=== PATIENT | male | born 1970 | race African-American/Black ===

== ENCOUNTER 2018-11-11 13:41 | Inpatient (IN) | payer OTHER ==
[2018-11-11 14:13] VITALS: BMI 41.3
--- NOTE | 2018-11-11 19:46 | HP ---
"CIWA Score Nausea/Vomitin-Mild Nausea/No Vomiting Muscle Tremors: 1-None Visible, but Girard Anxiety: 4-Mod. Anxious/Guarded Agitation: 4-Moderately Restless Paroxysmal Sweats: 1-Minimal Palms Moist Orientation: 0-Oriented Tacttile Disturbances: 0-None Auditory Disturbances: 0-None Visual Disturbances: 0-None Headache: 3-Moderate CIWA-Ar Total Score: 14 - Admission Criteria [facility]ASAS Guidelines: Admission for Medically Managed Detox: Requires at least one of the followin. CIWA greater than 12 2. Seizures within the past 24 hours 3. Delirium tremens within the past 24 hours 4. Hallucinations within the past 24 hours 5. Acute intervention needed for co occurring medical disorder 6. Acute intervention needed for co occurring psychiatric disorder 7. Severe withdrawal that cannot be handled at a lower level of care (continued vomiting, continued diarrhea, abnormal vital signs) requiring intravenous medication and/or fluids 8. Patient presents the following: CIWA greater than 12 Admission Criteria Met: Admission criteria met Admission ROS S - [facility] Chief Complaint: I'm having alcohol withdrawal and I need help for crack. Allergies/Adverse Reactions: Allergies Allergy/AdvReac Type Severity Reaction Status Date / Time No Known Allergies Allergy Verified 11/11/18 18:03 History of Present Illness: Alcohol use began at age 18. Cocaine/Crack use began at age 21. Nicotine use began at age 10. Denies seizures or overdose. States last blackout 1 year ago. Longest sobriety 2 years. C/0 stiffness (R) shoulder. Denies pain. Denies significant PMH/PSH Search Terms: [place], 1970 Search Date: 11/11/2018 07:36:31 PM The Drug Utilization Report below displays all of the controlled substance prescriptions, if any, that your patient has filled in the last twelve months. The information displayed on this report is compiled from pharmacy submissions to the Department, and accurately reflects the information as submitted by the pharmacies. This report was requested by: Nannette Wallis | Reference #: [id number] There are no results for the search terms that you entered. Exam Limitations: No Limitations - Ebola screening Have you traveled outside of the country in the last 21 days: No Have you had contact with anyone from an Ebola affected area: No Have you been sick,other than usual withdrawal symptoms: No - Review of Systems Constitutional: Changes in sleep (Difficulty falling and staying asleep[.) EENT: reports: Blurred Vision, Dental Problems (No teeth. States wears dentures) Respiratory: reports: No Symptoms reported Cardiac: reports: No Symptoms Reported GI: reports: Nausea : reports: No Symptoms Reported Musculoskeletal: reports: Joint Pain ((R) shoulder pain x years. Has been seen at [facility] and recent x-ray is negative.), Other (Knot (L) thumb x 2 months.) Integumentary: reports: No Symptoms Reported Neuro: reports: Headache, Tremors (States shakes resolved) Endocrine: reports: No Symptoms Reported Hematology: reports: No Symptoms Reported Psychiatric: reports: Judgement Intact, Orientated x3, Agitated, Anxious, Depressed (Denies thoughts of harming self or others) Patient History - Patient Medical History Hx Asthma: No Hx Cardiac Disorders: No Hx Hypertension: No Hx Seizures: No Hx Diabetes: No Hx Gastrointestinal Disorders: No Hx Sexually Transmitted Disorders: No Hx Depression: Yes - Patient Surgical History Past Surgical History: No - PPD History Previous Implant?: Yes Documented Results: Negative w/o proof Implanted On Prior R Admission?: No PPD to be Administered?: Yes - Smoking Cessation Smoking history: Current every day smoker Have you smoked in the past 12 months: Yes Aproximately how many cigarettes per day: 5 Hx Chewing Tobacco Use: No Initiated information on smoking cessation: Yes 'Breaking Loose' booklet given: 11/11/18 - Substance & Tx. History Hx Alcohol Use: Yes Hx Substance Use: Yes Substance Use Type: Alcohol, Cocaine (Crack/cocaine) - Substances Abused Alcohol Route: Oral Frequency: Daily Amount used: 4 PINTS Age of first use: 18 Date of Last Use: 11/11/18 Cocaine Route: Smoking Frequency: 1-3 times last 30 days Amount used: $400 Age of first use: 21 Date of Last Use: 11/10/18 Admission Physical Exam BHS - Vital Signs Vital Signs: Vital Signs - 24 hr 11/11/18 14:11 Temperature 98.2 F Pulse Rate 73 Respiratory 18 Rate Blood Pressure 143/95 - Physical General Appearance: Yes: Mild Distress, Tremorous, Irritable, Sweating, Anxious HEENTM: Yes: EOMI, Hearing grossly Normal, Normal Voice, SILKE, Pharynx Normal Respiratory: Yes: Chest Non-Tender, Lungs Clear, Normal Breath Sounds, No Respiratory Distress Neck: Yes: No masses,lesions,Nodules, Supple Breast: Yes: Breast Exam Deferred Cardiology: Yes: Regular Rhythm, Regular Rate, S1, S2 Abdominal: Yes: Non Tender (Tenderness mid epigastric area. No guarding. No rebound.), Soft, Increased Bowel Sounds, Protuberent (Increased abdominal adiposity.) Genitourinary: Yes: Within Normal Limits Back: Yes: Normal Inspection Musculoskeletal: Yes: Gait Steady, Joint Stiffness ((R) arm stiffness) Extremities: Yes: Normal Capillary Refill, Non-Tender, Tremors (Tremors at rest which increase w/ arm elevation) Neurological: Yes: radio officer II-XII NML intact, Fully Oriented, Alert, Motor Strength 5/5 Integumentary: Yes: Normal Color, Dry, Warm Lymphatic: Yes: Within Normal Limits - Diagnostic (1) Alcohol dependence with uncomplicated withdrawal Current Visit: Yes Status: Acute (2) Cocaine dependence, uncomplicated Current Visit: Yes Status: Chronic (3) Obesity Current Visit: Yes Status: Chronic Qualifiers: Obesity type: unspecified obesity type Obesity classification: adult class 3 (BMI >= 40) Serious obesity comorbidity presence: unspecified whether serious comorbidity present Body mass index: BMI 40.0-44.9 Qualified Code(s) : E66.01 - Morbid (severe) obesity due to excess calories; Z68.41 - Body mass index (BMI) 40.0-44.9, adult (4) Nicotine dependence, uncomplicated Current Visit: Yes Status: Chronic Qualifiers: Nicotine product type: cigarettes Qualified Code(s): F17.210 - Nicotine dependence, cigarettes, uncomplicated Cleared for Admission [facility] - Detox or Rehab [facility] Level of Care: Medically Managed Detox Regimen/Protocol: Librium [facility] Breath Alcohol Content Breath Alcohol Content: 0 Urine Drug Screen - Results Drug Screen Negative: No Urine Drug Screen Results: KEVIN-Cocaine"
[2018-11-11] MEDS ORDERED: MAG HYDROX/AL HYDROX/SIMETH 30 ML UNIT-DOSE CUP PO PRN (22:05)
[2018-11-11] MEDS ORDERED: MAGNESIUM CITRATE 300 ML BOTTLE PO PRN (22:05)
[2018-11-11] MEDS ORDERED: MAGNESIUM HYDROX 2400MG/30ML ORAL SUSPENSION 30 ML CUP PO PRN (22:05)
[2018-11-11] MEDS ORDERED: NICOTINE POLACRILEX 2 MG GUM BC PRN (22:05)
[2018-11-11] MEDS ORDERED: MENTHOL/PHENOL 1 EACH UD MM PRN (22:05)
[2018-11-11] MEDS ORDERED: IBUPROFEN 400 MG TABLET (FP) PO PRN (22:05)
[2018-11-11] MEDS ORDERED: chlordiazePOXIDE HCL 25 MG CAPSULE PO PRN (22:05)
[2018-11-11] MEDS ORDERED: P-EPHED 60MG/TRIPROLIDI 2.5MG TABLET PO PRN (22:05)
[2018-11-11] MEDS ORDERED: LOPERAMIDE HCL 2 MG CAPSULE PO PRN (22:05)
[2018-11-11] MEDS ORDERED: ACETAMINOPHEN 325 MG TABLET (FP) PO PRN (22:05)
[2018-11-11] MEDS ORDERED: chlordiazePOXIDE HCL 25 MG CAPSULE PO ONE (22:05)
[2018-11-11] MEDS: chlordiazePOXIDE HCL 25 MG CAPSULE PO SCH (22:57)
[2018-11-12] MEDS: chlordiazePOXIDE HCL 25 MG CAPSULE PO SCH ×4 (06:04→22:29)
--- NOTE | 2018-11-12 08:37 | EKG ---
Test Reason : Blood Pressure : / mmHG Vent. Rate : 048 BPM Atrial Rate : 048 BPM P-R Int : 148 ms QRS Dur : 076 ms QT Int : 456 ms P-R-T Axes : 063 010 018 degrees QTc Int : 407 ms SINUS BRADYCARDIA OTHERWISE NORMAL ECG NO PREVIOUS ECGS AVAILABLE Confirmed by JOHN CAMPBELL, NIGHAT ([id number]) on 11/12/2018 8:37:06 AM Referred By: Confirmed By:NIGHAT LOPEZ MD
[2018-11-12] MEDS: PRENATAL VITAMINS W/ FOLIC ACID TABLET (FP) PO SCH (10:11)
[2018-11-12] MEDS: NICOTINE 7 MG/24 HOURS TOPICAL PATCH TD SCH (10:19)
[2018-11-12 10:55] LABS: ALBUMIN 3.3 g/dl (3.4-5.0); ALK PHOS 59 U/L (45-117); ANION GAP 8 MMOL/L (8-16); BILIRUBIN,TOTAL 0.3 mg/dL (0.2-1); BLOOD UREA NITROGEN 16 mg/dL (7-18); CALCIUM 8.8 mg/dL (8.5-10.1); CHLORIDE 104 mmol/L (98-107); CO2 27 mmol/L (21-32); CREATININE 1.1 mg/dL (0.55-1.3); GLUCOSE,RANDOM 123 mg/dL (74-106); POTASSIUM 3.7 mmol/L (3.5-5.1); SGOT/AST 36 U/L (15-37); SGPT/ALT 29 U/L (13-61); SODIUM 140 mmol/L (136-145); TOT PROT 5.9 g/dl (6.4-8.2)
[2018-11-12 10:56] LABS: URINE APPEARANCE TURBID; URINE BILIRUBIN NEGATIVE (<2.0 mg/dL); URINE COLOR YELLOW; URINE GLUCOSE (UA) 2+ (NEGATIVE); URINE KETONE NEGATIVE (NEGATIVE); URINE LEUK ESTERASE NEGATIVE (NEGATIVE); URINE NITRITE NEGATIVE (NEGATIVE); URINE PROTEIN NEGATIVE (NEGATIVE)
[2018-11-12 11:06] LABS: HEMATOCRIT 42.8 % (35.4-49); HEMOGLOBIN 13.8 GM/dL (11.7-16.9); MCH 28.6 pg (25.7-33.7); MCHC 32.2 g/dl (32.0-35.9); MEAN CELL VOLUME 88.9 fl (80-96); MEAN PLT VOLUME 8.5 fl (7.5-11.1); PLATELET COUNT 241 K/MM3 (134-434); RBC 4.81 M/mm3 (4.00-5.60); RDW 13.8 % (11.9-15.9)
--- NOTE | 2018-11-12 15:14 | PN ---
S CIWA - CIWA Score Nausea/Vomitin-No Nausea/No Vomiting Muscle Tremors: 2 Anxiety: 3 Agitation: 2 Paroxysmal Sweats: 2 Orientation: 0-Oriented Tacttile Disturbances: 2-Mild Itch/Numbness/Burn Auditory Disturbances: 0-None Visual Disturbances: 0-None Headache: 0-None Present CIWA-Ar Total Score: 11 BHS Progress Note (SOAP) Subjective: Sweating, Tremors, Anxious. Objective: PATIENT A & O X 3, OBSERVED AMBULATING ON UNIT. IN NO ACUTE DISTRESS. 11/12/18 15:15 Vital Signs Temperature 99.3 F 11/12/18 13:41 Pulse Rate 90 11/12/18 13:41 Respiratory Rate 18 11/12/18 13:41 Blood Pressure 111/70 11/12/18 13:41 O2 Sat by Pulse Oximetry (%) Laboratory Tests 11/12/18 11/12/18 11/12/18 07:45 07:45 07:45 WBC 8.0 RBC 4.81 Hgb 13.8 Hct 42.8 MCV 88.9 MCH 28.6 MCHC 32.2 RDW 13.8 Plt Count 241 MPV 8.5 Sodium 140 Potassium 3.7 Chloride 104 Carbon Dioxide 27 Anion Gap 8 BUN 16 Creatinine 1.1 Creat Clearance w eGFR > 60 Random Glucose 123 H Calcium 8.8 Total Bilirubin 0.3 AST 36 ALT 29 Alkaline Phosphatase 59 Total Protein 5.9 L Albumin 3.3 L Urine Color Urine Appearance Urine pH Ur Specific [place] Urine Protein Urine Glucose (UA) Urine Ketones Urine Blood Urine Nitrite Urine Bilirubin Urine Urobilinogen Ur Leukocyte Esterase HIV 1&2 Antibody Screen Negative HIV P24 Antigen Negative 11/12/18 07:45 WBC RBC Hgb Hct MCV MCH MCHC RDW Plt Count MPV Sodium Potassium Chloride Carbon Dioxide Anion Gap BUN Creatinine Creat Clearance w eGFR Random Glucose Calcium Total Bilirubin AST ALT Alkaline Phosphatase Total Protein Albumin Urine Color Yellow Urine Appearance Turbid Urine pH 5.0 Ur Specific [place] 1.032 Urine Protein Negative Urine Glucose (UA) 2+ H Urine Ketones Negative Urine Blood Negative Urine Nitrite Negative Urine Bilirubin Negative Urine Urobilinogen 2.0 Ur Leukocyte Esterase Negative HIV 1&2 Antibody Screen HIV P24 Antigen LABS NOTED. Assessment: 11/12/18 15:16 WITHDRAWAL SYMPTOMS. Plan: CONTINUE DETOX. INCREASE DAILY PO FLUID INTAKE.
[2018-11-12] MEDS: THIAMINE HCL 100 MG TABLET (FP) PO SCH (22:29)
[2018-11-12] MEDS: MELATONIN 5 MG TABLETS PO PRN (22:30)
[2018-11-13] MEDS: chlordiazePOXIDE HCL 25 MG CAPSULE PO SCH ×3 (05:30→17:20)
[2018-11-13] MEDS: NICOTINE 7 MG/24 HOURS TOPICAL PATCH TD SCH (10:06)
[2018-11-13] MEDS: PRENATAL VITAMINS W/ FOLIC ACID TABLET (FP) PO SCH (10:06)
--- NOTE | 2018-11-13 17:53 | PN ---
S CIWA - CIWA Score Nausea/Vomitin Muscle Tremors: 3 Anxiety: 3 Agitation: 3 Paroxysmal Sweats: 3 Orientation: 0-Oriented Tacttile Disturbances: 1-Very Mild Itch/Numbness Auditory Disturbances: 0-None Visual Disturbances: 0-None Headache: 0-None Present CIWA-Ar Total Score: 15 [facility] (SOAP[facility] Subjective: Sweating, chills, tremor, interrupted sleep Objective: 11/13/18 17:50 Last Vital Signs Temp Pulse Resp BP Pulse Ox 97.9 F 66 16 109/77 11/13/18 17:44 11/13/18 17:44 11/13/18 17:44 11/13/18 17:44 Laboratory Tests 11/12/18 11/12/18 11/12/18 07:45 07:45 07:45 WBC 8.0 RBC 4.81 Hgb 13.8 Hct 42.8 MCV 88.9 MCH 28.6 MCHC 32.2 RDW 13.8 Plt Count 241 MPV 8.5 Sodium 140 Potassium 3.7 Chloride 104 Carbon Dioxide 27 Anion Gap 8 BUN 16 Creatinine 1.1 Creat Clearance w eGFR > 60 Random Glucose 123 H Calcium 8.8 Total Bilirubin 0.3 AST 36 ALT 29 Alkaline Phosphatase 59 Total Protein 5.9 L Albumin 3.3 L Urine Color Urine Appearance Urine pH Ur Specific [place] Urine Protein Urine Glucose (UA) Urine Ketones Urine Blood Urine Nitrite Urine Bilirubin Urine Urobilinogen Ur Leukocyte Esterase RPR Titer HIV 1&2 Antibody Screen Negative HIV P24 Antigen Negative 11/12/18 11/12/18 07:45 07:45 WBC RBC Hgb Hct MCV MCH MCHC RDW Plt Count MPV Sodium Potassium Chloride Carbon Dioxide Anion Gap BUN Creatinine Creat Clearance w eGFR Random Glucose Calcium Total Bilirubin AST ALT Alkaline Phosphatase Total Protein Albumin Urine Color Yellow Urine Appearance Turbid Urine pH 5.0 Ur Specific [place] 1.032 Urine Protein Negative Urine Glucose (UA) 2+ H Urine Ketones Negative Urine Blood Negative Urine Nitrite Negative Urine Bilirubin Negative Urine Urobilinogen 2.0 Ur Leukocyte Esterase Negative RPR Titer Nonreactive HIV 1&2 Antibody Screen HIV P24 Antigen Labs reviewed: serum glucose 123, UA shows 2+ glucose Assessment: 11/13/18 17:51 Withdrawal symptoms Noted with hyperglycemia and glycosuria Plan: Continue detox Hyperglycemia: repeat fasting glucose Glycosuria: encouraged PO water intake, repeat UA
[2018-11-13] MEDS: chlordiazePOXIDE 5 MG CAPSULE PO SCH (22:04)
[2018-11-13] MEDS: THIAMINE HCL 100 MG TABLET (FP) PO SCH (22:04)
[2018-11-13] MEDS: MELATONIN 5 MG TABLETS PO PRN (22:05)
[2018-11-14] MEDS: chlordiazePOXIDE 5 MG CAPSULE PO SCH ×3 (06:20→18:28)
[2018-11-14] MEDS: NICOTINE 7 MG/24 HOURS TOPICAL PATCH TD SCH (10:29)
[2018-11-14] MEDS: PRENATAL VITAMINS W/ FOLIC ACID TABLET (FP) PO SCH (10:30)
--- NOTE | 2018-11-14 10:38 | PN ---
[facility] Progress Note (SOAP) Subjective: feeling better mild gi distress less tremor discuss aftercare with staff Objective: 11/14/18 10:38 Vital Signs Temperature 97.1 F L 11/14/18 09:33 Pulse Rate 67 11/14/18 09:33 Respiratory Rate 18 11/14/18 09:33 Blood Pressure 121/79 11/14/18 09:33 O2 Sat by Pulse Oximetry (%) Laboratory Last Values WBC 8.0 K/mm3 (4.0-10.0) 11/12/18 07:45 RBC 4.81 M/mm3 (4.00-5.60) 11/12/18 07:45 Hgb 13.8 GM/dL (11.7-16.9) 11/12/18 07:45 Hct 42.8 % (35.4-49) 11/12/18 07:45 MCV 88.9 fl (80-96) 11/12/18 07:45 MCH 28.6 pg (25.7-33.7) 11/12/18 07:45 MCHC 32.2 g/dl (32.0-35.9) 11/12/18 07:45 RDW 13.8 % (11.9-15.9) 11/12/18 07:45 Plt Count 241 K/MM3 (134-434) 11/12/18 07:45 MPV 8.5 fl (7.5-11.1) 11/12/18 07:45 Sodium 140 mmol/L (136-145) 11/12/18 07:45 Potassium 3.7 mmol/L (3.5-5.1) 11/12/18 07:45 Chloride 104 mmol/L (98-107) 11/12/18 07:45 Carbon Dioxide 27 mmol/L (21-32) 11/12/18 07:45 Anion Gap 8 MMOL/L (8-16) 11/12/18 07:45 BUN 16 mg/dL (7-18) 11/12/18 07:45 Creatinine 1.1 mg/dL (0.55-1.3) 11/12/18 07:45 Creat Clearance w eGFR > 60 (>60) 11/12/18 07:45 Random Glucose 123 mg/dL (74-106) H 11/12/18 07:45 Calcium 8.8 mg/dL (8.5-10.1) 11/12/18 07:45 Total Bilirubin 0.3 mg/dL (0.2-1) 11/12/18 07:45 AST 36 U/L (15-37) 11/12/18 07:45 ALT 29 U/L (13-61) 11/12/18 07:45 Alkaline Phosphatase 59 U/L (45-117) 11/12/18 07:45 Total Protein 5.9 g/dl (6.4-8.2) L 11/12/18 07:45 Albumin 3.3 g/dl (3.4-5.0) L 11/12/18 07:45 Urine Color Yellow 11/12/18 07:45 Urine Appearance Turbid 11/12/18 07:45 Urine pH 5.0 (5.0-8.0) 11/12/18 07:45 Ur Specific [place] 1.032 (1.010-1.035) 11/12/18 07:45 Urine Protein Negative (NEGATIVE) 11/12/18 07:45 Urine Glucose (UA) 2+ (NEGATIVE) H 11/12/18 07:45 Urine Ketones Negative (NEGATIVE) 11/12/18 07:45 Urine Blood Negative (NEGATIVE) 11/12/18 07:45 Urine Nitrite Negative (NEGATIVE) 11/12/18 07:45 Urine Bilirubin Negative (<2.0 mg/dL) 11/12/18 07:45 Urine Urobilinogen 2.0 mg/dL (0.2-1.0) 11/12/18 07:45 Ur Leukocyte Esterase Negative (NEGATIVE) 11/12/18 07:45 RPR Titer Nonreactive (NONREACTIVE) 11/12/18 07:45 HIV 1&2 Antibody Screen Negative 11/12/18 07:45 HIV P24 Antigen Negative 11/12/18 07:45 lab noted Assessment: 11/14/18 10:38 mild withdrawal sx Plan: continue detox
[2018-11-14] MEDS: chlordiazePOXIDE HCL 10 MG CAPSULE PO SCH (22:24)
[2018-11-14] MEDS: THIAMINE HCL 100 MG TABLET (FP) PO SCH (22:24)
[2018-11-15 06:06] VITALS: BP 104/65; PULSE 63; TEMP 97.1
[2018-11-15] MEDS: chlordiazePOXIDE HCL 10 MG CAPSULE PO SCH (06:18)
--- NOTE | 2018-11-15 15:04 | DS ---
[facility] Detox Discharge Summary Admission Date: 11/11/18 Discharge Date: 11/15/18 - History Present History: Alcohol Dependence, Cocaine Dependence Additional Comments: PATIENT LEFT DETOX UNIT PRIOR TO TIME OF ARRIVAL OF RIFFLER TENDER ON UNIT. THUS, DISCHARGE INTERVIEW / ASSESSMENT UNABLE TO BE DONE PRIOR TO DISCHARGE. PER PATIENT'S COUNSELOR (ALONZO NEIL), PATIENT DECLINED ALL AFTERCARE OPTION / SUGGESTIONS AND ELECTED TO GO HOME. Pertinent Past History: Nicotine Dependence, History of Depression. - Physical Exam Results Vital Signs: Vital Signs Temperature 97.1 F L 11/15/18 06:05 Pulse Rate 63 11/15/18 06:05 Respiratory Rate 20 11/15/18 06:05 Blood Pressure 104/65 11/15/18 06:05 O2 Sat by Pulse Oximetry (%) Pertinent Admission Physical Exam Findings: WITHDRAWAL SYMPTOMS. Laboratory Tests 11/12/18 11/12/18 11/12/18 07:45 07:45 07:45 WBC 8.0 RBC 4.81 Hgb 13.8 Hct 42.8 MCV 88.9 MCH 28.6 MCHC 32.2 RDW 13.8 Plt Count 241 MPV 8.5 Sodium 140 Potassium 3.7 Chloride 104 Carbon Dioxide 27 Anion Gap 8 BUN 16 Creatinine 1.1 Creat Clearance w eGFR > 60 Random Glucose 123 H Calcium 8.8 Total Bilirubin 0.3 AST 36 ALT 29 Alkaline Phosphatase 59 Total Protein 5.9 L Albumin 3.3 L Urine Color Urine Appearance Urine pH Ur Specific [place] Urine Protein Urine Glucose (UA) Urine Ketones Urine Blood Urine Nitrite Urine Bilirubin Urine Urobilinogen Ur Leukocyte Esterase RPR Titer HIV 1&2 Antibody Screen Negative HIV P24 Antigen Negative 11/12/18 11/12/18 07:45 07:45 WBC RBC Hgb Hct MCV MCH MCHC RDW Plt Count MPV Sodium Potassium Chloride Carbon Dioxide Anion Gap BUN Creatinine Creat Clearance w eGFR Random Glucose Calcium Total Bilirubin AST ALT Alkaline Phosphatase Total Protein Albumin Urine Color Yellow Urine Appearance Turbid Urine pH 5.0 Ur Specific [place] 1.032 Urine Protein Negative Urine Glucose (UA) 2+ H Urine Ketones Negative Urine Blood Negative Urine Nitrite Negative Urine Bilirubin Negative Urine Urobilinogen 2.0 Ur Leukocyte Esterase Negative RPR Titer Nonreactive HIV 1&2 Antibody Screen HIV P24 Antigen LABS NOTED. - Treatment Hospital Course: Detox Protocol Followed, Detoxed Safely, Responded well, Discharged Condition Good Patient has Accepted a Rehab Referral to: PER PATIENT'S COUNSELOR, PATIENT DECLINES AFTERCARE OPTIONS. - Medication Discharge Medications: Ambulatory Orders NK [No Known Home Medication] 11/11/18 - Diagnosis (1) Alcohol dependence with uncomplicated withdrawal Status: Acute (2) Cocaine dependence, uncomplicated Status: Chronic (3) Nicotine dependence, uncomplicated Status: Chronic Qualifiers: Nicotine product type: cigarettes Qualified Code(s): F17.210 - Nicotine dependence, cigarettes, uncomplicated (4) Obesity Status: Chronic Qualifiers: Obesity type: unspecified obesity type Obesity classification: adult class 3 (BMI >= 40) Serious obesity comorbidity presence: unspecified whether serious comorbidity present Body mass index: BMI 40.0-44.9 Qualified Code(s) : E66.01 - Morbid (severe) obesity due to excess calories; Z68.41 - Body mass index (BMI) 40.0-44.9, adult - AMA Did Patient Leave Against Medical Advice: No
== END 2018-11-15 09:21 | disposition home or self-care (01) | DRG 774 ==
LOC: YASAS 13:41 → Y3N 19:07
PROC: HZ2ZZZZ Detoxification Services for Substance Abuse Treatment (ICD-10-PCS; principal; 2018-11-11)
DX: F10.230 Alcohol dependence with withdrawal, uncomplicated (principal); F14.20 Cocaine dependence, uncomplicated; F17.210 Nicotine dependence, cigarettes, uncomplicated; E66.01 Morbid (severe) obesity due to excess calories; Z68.41 Body mass index [BMI] 40.0-44.9, adult; R73.9 Hyperglycemia, unspecified; R81 Glycosuria; Z86.59 Personal history of other mental and behavioral disorders
CPT/HCPCS: 36415; 80053; 81003; 85027; 86593; 87389; 93005; 93010